=== PATIENT | male | born 1935 | race Caucasian/White ===

== ENCOUNTER 2021-12-10 15:06 | Emergency (ER) | payer MEDICARE, SELFPAY ==
[2021-12-10 15:19] VITALS: BP 156/91; PULSE 94; RESP 18; TEMP 37.6; O2SAT 92; BMI 17.2
--- NOTE | 2021-12-10 15:32 | XRR_ITS ---
PROCEDURE INFORMATION: Exam: XR Chest Exam date and time: 12/10/2021 3:40 PM Age: 86 years old Clinical indication: Cough and dyspnea; Additional info: Dyspnea/cough TECHNIQUE: Imaging protocol: XR of the chest. Views: 1 view. COMPARISON: No relevant prior studies available. FINDINGS: Lungs: Changes of emphysema. Fullness in the right perihilar region. The lungs are otherwise clear. Pleural spaces: Unremarkable. No pleural effusion. No pneumothorax. Heart/Mediastinum: Unremarkable. No cardiomegaly. Bones/joints: Unremarkable. Soft tissues: Skin folds in the left chest wall. XR/XR chest 1V portable [id number] IMPRESSION: 1. Fullness of the right hilum could represent lymphadenopathy or a perihilar pulmonary nodule. Follow-up with a CT chest, preferably with IV contrast, is recommended.
--- NOTE | 2021-12-10 15:33 | W.ED.CHESTPA ---
HPI - Chest Pain General: Chief Complaint: Chest Pain Stated Complaint: chest pain Time Seen by Provider: 12/10/21 15:26 Source: patient Mode of arrival: ambulatory History of Present Illness: 86-year-old male presents emergency room with complaint of shortness of breath and chest discomfort he states both symptoms started 3 days ago. He denies any hemoptysis and no radiation of pain to the neck or arms. No fever sweats or chills patient has a known history of COPD patient mildly hypoxic on arrival here he does have a low-grade fever temp 99 6. Pain is worse with deep breathing. MD complaint: chest pain Onset (ago): day(s) Timing of current episode: episodic Onset: during rest Pain location: right chest Pain radiation: none Severity: moderate Quality: sharp Relieving factors: nothing Exacerbating factors: inspiration Associated symptoms: Reports fever(s); Deny abdominal pain, diaphoresis, dyspnea, leg edema, nausea, palpitations, sense of impending doom, syncope or vomiting Treatment prior to arrival: none Review of Systems Const: Reports: fever(s); Denies: chills, body aches or diaphoresis ENMT: Denies: throat pain, ear or mastoid pain, nasal discharge or nasal congestion Card: Denies: palpitations or syncope Resp: Denies: dyspnea GI: Denies: abdominal pain, nausea or vomiting : Denies: flank pain, dysuria, urinary frequency or urinary urgency Skin/Breast: Denies: rash or pruritus [facility] PFSH: Medical History COPD (chronic obstructive pulmonary disease) Social History Smoking and tobacco status: never smoked Alcohol intake: never Physical Exam Const: COMMON NORMALS: no acute distress GENERAL APPEARANCE: comfortable NUTRITIONAL APPEARANCE: cachectic ORIENTATION/CONSCIOUSNESS: Yes awake, Yes oriented to person, Yes oriented to place and Yes oriented to time HENMT: COMMON NORMALS: normocephalic, atraumatic and hearing grossly normal bilaterally HEAD & SCALP: normocephalic and atraumatic Neck/C-Spine: COMMON NORMALS: no JVD Resp: COMMON NORMALS: normal respiratory effort, No retractions and No use of accessory muscles AUSCULTATION: rhonchi and wheezes Cardio: COMMON NORMALS: no JVD, regular rate, regular rhythm and No murmurs present (Cardio) RATE: regular rate RHYTHM: regular rhythm GI: COMMON NORMALS: Soft to palpation and No hepatosplenomegaly present AUSCULTATION: Yes normoactive bowel sounds PALPATION: Yes Soft to palpation, No Tenderness to palpation present (GI), No Guarding due to palpation present (GI) and Yes No hepatosplenomegaly present Extremity: COMMON NORMALS: normal to inspection, capillary refill normal, no clubbing, cyanosis or edema, no calf tenderness and no pedal edema Neuro: SENSORIUM/ORIENTATION: Yes oriented to person, Yes oriented to place and Yes oriented to time Skin: COMMON NORMALS: no rashes or lesions noted GENERAL SKIN EXAM: no rashes or lesions noted Course Vital Signs: Vital signs: Vital Signs Temperature 99.6 F 12/10/21 15:19 Pulse Rate 85 12/10/21 17:27 Respiratory Rate 20 H 12/10/21 17:27 Blood Pressure 137/78 12/10/21 17:27 Pulse Oximetry 95 12/10/21 17:27 MDM - Chest Pain Medical Decision Making Right hilar mass concerning for neoplasm. Patient also requiring oxygen only did a home O2 evaluation. He has been using his 's oxygen who evidently recently that had been on oxygen for COPD. Chest pain seems to be pleuritic in nature may be related to the mass that were seen. It is little more lateral in the chest where he refers the pain to however. Attempted to discuss to the patient he is very agitated and talking to him sounds like his of a lung cancer as well and we brought up the findings on plain film he became very anxious and upset he wants to leave. We will get him set up for home oxygen encouraged him to follow-up with pulmonology. Medical Records I reviewed the patient's medical records. Lab Data I reviewed the patient's lab results. : 12/10/21 15:36 12/10/21 15:36 Radiology Impressions Chest X-Ray 12/10/21 15:32 IMPRESSION: 1. Fullness of the right hilum could represent lymphadenopathy or a perihilar pulmonary nodule. Follow-up with a CT chest, preferably with IV contrast, is recommended. Laboratory Results WBC 10.8 10^3/uL (4.0-10.0) H 04/23/22 15:36 RBC 3.96 10^6/uL (4.1-5.3) L 12/10/21 15:36 Hgb 12.6 g/dL (11.7-16.6) 12/10/21 15:36 Hct 39.4 % (42.0-52.0) L 12/10/21 15:36 MCV 99.5 fl (80-94) H 12/10/21 15:36 MCH 31.8 pg (28.0-34.0) 12/10/21 15:36 MCHC 32.0 g/dL (30.0-36.0) 12/10/21 15:36 RDW 13.1 % (12.1-15.1) 12/10/21 15:36 Plt Count 203 10^3/cmm (130-400) 12/10/21 15:36 MPV 12.1 fL (7.4-10.4) H 12/10/21 15:36 Neut % (Auto) 76.0 % 12/10/21 15:36 Lymph % (Auto) 11.7 % 12/10/21 15:36 [place] % (Auto) 11.3 % 12/10/21 15:36 Eos % (Auto) 0.3 % 12/10/21 15:36 Baso % (Auto) 0.2 % 12/10/21 15:36 Neut # (Auto) 8.20 10^3/uL (1.8-7.7) H 12/10/21 15:36 Lymph # (Auto) 1.3 10^3/uL (0.8-4.8) 12/10/21 15:36 [place] # (Auto) 1.2 10^3/uL (0.2-0.9) H 12/10/21 15:36 Eos # (Auto) 0.0 10^3/uL (0.0-0.8) 12/10/21 15:36 Baso # (Auto) 0.0 10^3/uL (0.0-0.1) 12/10/21 15:36 Nucleated RBC % (auto) 0 % 12/10/21 15:36 Nucleated RBCs # 0.0 /100WBC 12/10/21 15:36 Specimen Type Arterial 12/10/21 15:35 Sample Site Radial, left 12/10/21 15:35 ABG pH 7.44 (7.35-7.45) 12/10/21 15:35 ABG pCO2 46.8 mmHg (35-45) H 12/10/21 15:35 ABG pO2 57.0 mmHg (80.0-100.0) L 12/10/21 15:35 ABG HCO3 31.8 mmol/L (22-26) H 12/10/21 15:35 ABG O2 Saturation 90.3 12/10/21 15:35 ABG Base Excess 6.6 mmol/L (-2.0-2.0) H 12/10/21 15:35 Dennis Test Pos 12/10/21 15:35 A-a O2 Gradient 4.5 mmHg (5-10) L 12/10/21 15:35 Hematocrit 37.8 % (42-52) L 12/10/21 15:35 Hgb O2 Saturation 88.1 % (95-100) L 12/10/21 15:35 Carboxyhemoglobin 1.5 %THgb (0.4-20.1) 12/10/21 15:35 Methemoglobin 1.0 % (0.4-1.5) 12/10/21 15:35 Total Hemoglobin 12.3 g/dL (14-18) L 12/10/21 15:35 Sodium 142.0 mmol/L (131-143) 12/10/21 15:35 Potassium 4.3 mmol/L (3.5-5.0) 12/10/21 15:35 Glucose 121.0 mg/dL (70-115) H 12/10/21 15:35 Ionized Calcium 1.3 mmol/L (1.1-1.4) 12/10/21 15:35 O2 Delivery Device Room air 12/10/21 15:35 FiO2 21.0 % 12/10/21 15:35 [facility] ID Cak 12/10/21 15:35 Sodium 142 mmol/L (136-145) 12/10/21 15:36 Potassium 4.4 mmol/L (3.5-5.1) 12/10/21 15:36 Chloride 101 mmol/L (98-107) 12/10/21 15:36 Carbon Dioxide 32 mmol/L (22-29) H 12/10/21 15:36 Anion Gap 13.4 (5-19) 12/10/21 15:36 BUN 27 mg/dL (8-23) H 12/10/21 15:36 Creatinine 1.2 mg/dL (0.7-1.2) 12/10/21 15:36 GFR Calculation Not Reportable 12/10/21 15:36 Glucose 110 mg/dL (65-115) 12/10/21 15:36 Calculated Osmolality 300 mOsm/kg (285-295) H 12/10/21 15:36 Calcium 9.1 mg/dL (8.5-10.5) 12/10/21 15:36 Total Bilirubin 0.4 mg/dL (0.15-1.2) 12/10/21 15:36 AST 15 U/L (0-40) 12/10/21 15:36 ALT 12 U/L (0-41) 12/10/21 15:36 Alkaline Phosphatase 62 IU/L (40-130) 12/10/21 15:36 Troponin T Baseline 19 ng/L (0-15) H 12/10/21 15:36 Total Protein 7.3 g/dL (6.6-8.7) 12/10/21 15:36 Albumin 4.0 g/dL (3.5-5.2) 12/10/21 15:36 Globulin 3.3 g/dL (1.3-4.6) 12/10/21 15:36 Urine Color Yellow (Yellow) 12/10/21 16:33 Urine Appearance Clear (CLEAR) 12/10/21 16:33 Urine pH 6 (5-7) 12/10/21 16:33 Ur Specific Ward 1.020 (1.005-1.030) 12/10/21 16:33 Urine Protein Trace (Negative) 12/10/21 16:33 Urine Glucose (UA) Norm (Normal) 12/10/21 16:33 Urine Ketones Negative (Negative) 12/10/21 16:33 Urine Blood Neg (Negative) 12/10/21 16:33 Urine Nitrate Negative (Negative) 12/10/21 16:33 Urine Bilirubin Neg (Negative) 12/10/21 16:33 Urine Urobilinogen Norm mg/dL (Negative) 12/10/21 16:33 Ur Leukocyte Esterase Negative (Negative) 12/10/21 16:33 Urine RBC None /hpf (0-2) 12/10/21 16:33 Urine WBC 0-4 /hpf (0-5) H 12/10/21 16:33 Ur Squamous Epith Cells None /hpf (0-5) 12/10/21 16:33 Amorphous Sediment Not Reportable 12/10/21 16:33 Urine Bacteria Trace /hpf (NONE) 12/10/21 16:33 Discharge Plan Discharge Patient Disposition: Home Clinical Impression: Mass of hilum, COPD (chronic obstructive pulmonary disease), Chronic hypercapnic respiratory failure, Chronic respiratory failure with hypoxia Condition: Stable Prescriptions: No Action aspirin 81 mg tablet,chewable 81 mg PO DAILY 0RF lisinopril-hydrochlorothiazide 10-12.5 mg tablet 1 tab PO DAILY 0RF Ventolin HFA 90 mcg/actuation HFA aerosol inhaler 2 puff INHALATION Q4H PRN (Reason: Shortness Of Breath) 0RF fluticasone propionate 50 mcg/actuation spray,suspension 1 spray INTRANASAL DAILY PRN (Reason: Nasal Congestion) 0RF loratadine 10 mg tablet 10 mg PO DAILY PRN (Reason: Allergy Symptoms) 0RF Trelegy Ellipta 200-62.5-25 mcg blister with device 1 ea INHALATION DAILY 0RF Discharge Orders: Discharge ED (Routine); Ordered 12/10/21 Ordered By: Rickie Rodriguez Other Ambulatory Orders: DME: Oxygen (Order) Location: None Selected Ordered By: Rickie Rodriguez Patient Instructions: Opioid Safety Activity Restrictions/Additional Instructions: This management make arrangements for you to follow-up with one of the furniture finisher regarding the right hilar mass. Coding Level of Care Code ED Account Officer for [facility] Fwd Exam Comprehensive
[2021-12-10 15:38] VITALS: BP 137/98; PULSE 89; RESP 25; O2SAT 93
[2021-12-10 15:46] LABS: ABG PCO2 46.8 mmHg (35-45); ABG PH Result 7.44 (7.35-7.45); Alveolar-Arterial Oxygen Gradi 4.5 mmHg (5-10); Arterial Blood Gas Hematocrit 37.8 % (42-52); Base Excess ABG 6.6 mmol/L (-2.0-2.0); Blood Gas Allen Test Pos; Blood Gas Operator Identificat CAK; Blood Gas Sample Site Radial, left; Blood Gas Sample Type Arterial; Carboxyhemoglobin 1.5 %THgb (0.4-20.1); HCO3 ABG 31.8 mmol/L (22-26); HGB O2 Sat 88.1 % (95-100); Ionized Calcium Level - ABG 1.3 mmol/L (1.1-1.4); Oxygen Device ROOM AIR; Oxygen Saturation ABG 90.3; Potassium Level - ABG 4.3 mmol/L (3.5-5.0); Total Hemoglobin 12.3 g/dL (14-18)
[2021-12-10 16:06] LABS: Basophils % 0.2 %; Eosinophils % 0.3 %; Hematocrit 39.4 % (42.0-52.0); Hemoglobin 12.6 g/dL (11.7-16.6); Lymphocytes # 1.3 10^3/uL (0.8-4.8); Lymphocytes % 11.7 %; Mean Corpuscular Hemoglobin 31.8 pg (28.0-34.0); Mean Corpuscular Volume 99.5 fl (80-94); Mean Platelet Volume 12.1 fL (7.4-10.4); Monocytes # 1.2 10^3/uL (0.2-0.9); Monocytes % 11.3 %; Nucleated Red Blood Cells % 0 %; Platelet Count 203 10^3/cmm (130-400); Red Blood Count 3.96 10^6/uL (4.1-5.3); Red Cell Distribution Width 13.1 % (12.1-15.1); White Blood Count 10.8 10^3/uL (4.0-10.0)
--- NOTE | 2021-12-10 16:16 | PC.NURSE ---
CALL GLENN @ [phone] WITH UPDATES.
[2021-12-10 16:18] LABS: Alanine Aminotransferase 12 U/L (0-41); Alkaline Phosphatase 62 IU/L (40-130); Anion Gap 13.4 (5-19); Aspartate Amino Transferase 15 U/L (0-40); Blood Urea Nitrogen 27 mg/dL (8-23); Calcium 9.1 mg/dL (8.5-10.5); Carbon Dioxide 32 mmol/L (22-29); Chloride 101 mmol/L (98-107); Creatinine Clr Calc Pharmacy 33.1688; Globulin 3.3 g/dL (1.3-4.6); Glucose 110 mg/dL (65-115); Osmolality Calculated 300 mOsm/kg (285-295); Potassium 4.4 mmol/L (3.5-5.1); Sodium 142 mmol/L (136-145); Total Bilirubin 0.4 mg/dL (0.15-1.2); Total Protein 7.3 g/dL (6.6-8.7)
[2021-12-10 16:19] LABS: Troponin(5th) Baseline 19 ng/L (0-15)
[2021-12-10 16:38] VITALS: BP 145/69; PULSE 88; RESP 24; O2SAT 96
[2021-12-10 16:54] VITALS: O2SAT 88; O2SAT 94
[2021-12-10 17:04] LABS: Add Urine Microscopic? YES; Bilirubin Urine Neg (Negative); Blood Urine Neg (Negative); Glucose Urine UA Norm (Normal); Ketones Urine Negative (Negative); Leukocyte Esterase Urine Negative (Negative); Nitrate Urine Negative (Negative); Protein Urine Trace (Negative); Urine Appearance Clear (CLEAR); Urine Color Yellow (Yellow); Urobilinogen Urine Norm (Negative); WBC Urine 0-4 /hpf (0-5); pH Urine 6 (5-7)
[2021-12-10 17:05] LABS: Add Urine Culture? No; Bacteria Urine TRACE /hpf
[2021-12-10 17:27] VITALS: BP 137/78; PULSE 85; RESP 20; O2SAT 95
--- NOTE | 2021-12-10 21:32 | ECG_ITS ---
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 Measurements Intervals Rachel Rate: 94 P: 80 OK: 153 QRS: 93 QRSD: 89 T: 72 QT: 323 QTc: 404 Interpretive Statements SINUS RHYTHM WITH OCCASIONAL ECTOPIC PREMATURE COMPLEXES POSSIBLE RIGHT ATRIAL ENLARGEMENT [0.25mV P-WAVE] LEFT ATRIAL ENLARGEMENT [-0.15mV P-WAVE IN V1/V2] BORDERLINE RIGHT AXIS DEVIATION [QRS AXIS > 90] No previous ECG available for comparison Electronically Signed On 12-11-2021 19:34:40 CDT by Darin Sanchez M.D. [email or web address]
--- NOTE | 2021-12-12 12:58 | DCPLANNER ---
Addendum entered by Ligia Cordova 01/13/22 18:37: Patient had a follow up appointment scheduled for 12.26.21 with [facility] - patient did attend appointment. Addendum entered by Ligia Cordova 12/13/21 09:16: Patient has a follow up appointment scheduled for Sunday, December 26, 2021 at 2:[address] Wilburn. workforce management manager called neighbor and gave neighbor patients appointment information. Original Note: workforce management manager had message to schedule a follow up appointment for patient with pulmonology. workforce management manager sent patients information to the front office staff at [facility]. Patients information will be printed and reviewed. Clinic will notify nurse case manager of the scheduled appointment. workforce management manager will call patient with appointment information.
== END 2021-12-10 17:29 | disposition home or self-care (01) ==
PROVIDERS: Emergency Provider Family Medicine
DX: J44.9 Chronic obstructive pulmonary disease, unspecified (principal); J96.12 Chronic respiratory failure with hypercapnia; J96.11 Chronic respiratory failure with hypoxia; J98.4 Other disorders of lung; Z79.82 Long term (current) use of aspirin
CPT/HCPCS: 36600; 71045; 80051; 80053; 81001; 82330; 82805; 84484; 85025; 93005; 99283

== ENCOUNTER → 2021-12-26 14:00 | Outpatient (BNVA) | payer MEDICARE, SELFPAY | PROVIDERS: Visit Provider Internal Medicine Critical Care Medicine | DX: R91.8 Other nonspecific abnormal finding of lung field (principal); J44.9 Chronic obstructive pulmonary disease, unspecified; Z87.891 Personal history of nicotine dependence | CPT/HCPCS: 99204 ==

== ENCOUNTER 2022-01-04 11:15 | Outpatient (CLI) | payer MEDICARE, SELFPAY ==
--- NOTE | 2022-01-04 13:56 | PFTS_ITS ---
Date of Study:01/04/22 Date of Dictation: MECHANICS: Forced vital capacity (FVC) is reduced. Forced expiratory volume in one second (FEV1) is reduced. FEV1/FVC is reduced. FLOW VOLUME LOOP: Reduced lateral lung volumes with significant scooping. LUNG VOLUMES: Total lung capacity (TLC) is normal. Residual volume (RV) is increased. DIFFUSING CAPACITY FOR CARBON MONOXIDE: Severely reduced. INTERPRETATION: The postbronchodilator spirometry is consistent with very severe obstruction. There is a significant postbronchodilator response. Lung volumes are consistent with air trapping. Gas exchange (DLCO) is severely reduced. MTDD
== END 2022-01-04 11:16 | disposition home or self-care (01) ==
PROVIDERS: Visit Provider Internal Medicine Critical Care Medicine
DX: R91.8 Other nonspecific abnormal finding of lung field (principal)
CPT/HCPCS: 94060; 94726; 94729; J7614